=== PATIENT | female | born 1945 | race Caucasian/White ===

== ENCOUNTER → 2019-08-05 | Outpatient (CLI) | payer OTHER ==
--- NOTE | 2019-08-06 08:49 | 2DMMODE ---
[facility] [address] [place] [address] 2 D/M-MODE ECHOCARDIOGRAM Name: CHERISE DIAZ Room #: REG [facility]END[facility]#: [id number] ������������� Admission: 08/05/19 ������������� Attend Phys: Phong Roth, Discharge: ��� ������������� ��� Date of : 47 �������������������� �� Report #: [id number] �������� ��������������������������������������������[id number] THIS REPORT FOR: //name// APPROVED REPORT Study performed: 08/05/2019 13:48:26 EXAM: Comprehensive 2D, Doppler, and color-flow Echocardiogram Patient Location: Out-Patient Room #: Echo lab 2 Status: routine BSA: 1.66 HR: 74 bpm BP: 106/64 mmHg Rhythm: NSR Other Information Study Quality: Good Indications CVA/TIA Echo Enhancing Agent Indication: Rule out Shunt Agent(s) / Amount(s) Used: Agitated Saline 7 cc 2D Dimensions RVDd: 33.33 mm IVSd: 7.76 (7-11mm) LVOT Diam: 19.70 (18-24mm) LVDd: 41.00 mm PWd: 9.05 (7-11mm) Ascending Ao: 30.32 (22-36mm) LVDs: 27.07 (25-40mm) Aortic Root: 33.40 mm IVC: 15.00 mm Volumes Left Atrial Volume (Systole) Single Plane 4CH: 40.88 mL Single Plane 2CH: 39.12 mL LA ESV Index: 25.00 mL/m2 Aortic Valve AoV Peak Michele.: 1.16 m/s AO Peak Gr.: 5.38 mmHg LVOT Max P.32 mmHg LVOT Max V: 1.04 m/s RAZIA Vmax: 2.73 cm2 [facility] [address] [place] [address] 2 D/M-MODE ECHOCARDIOGRAM Name: EMILYCHERISE Room #: [facility]#: [id number] ������������� Admission: 08/05/19 ������������� Attend Phys: Phong Roth, Discharge: ��� ������������� ��� Date of : 47 �������������������� �� Report #: [id number] �������� ��������������������������������������������[id number] Mitral Valve E/A Ratio: 1.0 MV Decel. Time: 237.20 ms MV E Max Michele.: 0.80 m/s MV A Michele.: 0.82 m/s MV PHT: 68.79 ms IVRT: 133.79 ms Pulmonary Valve PV Peak Michele.: 0.85 m/s PV Peak Gr.: 2.91 mmHg Pulmonary Vein P Vein S: 0.64 m/s P Vein A: 0.33 m/s P Vein D: 0.54 m/s P Vein A Dur.: 106.1 msec P Vein S/D Ratio: 1.19 Tricuspid Valve TR Peak Michele.: 2.76 m/s TR Peak Gr.: 30.43 mmHg PA Pressure: 35.00 mmHg Left Ventricle The left ventricle is normal size. There is normal LV segmental wall motion. There is normal left ventricular wall thickness. The left ventricular systolic function is normal. The left ventricular ejection fraction is within the normal range. LVEF is 55-60%. Mild diastolic dysfunction is present (impaired relaxation pattern). Right Ventricle The right ventricle is normal size. The right ventricular systolic function is normal. Atria The left atrium size is normal. Tiny amount of [id number] shunting consistent with patent foramen ovale The right atrium size is normal. Aortic Valve The aortic valve is mildly calcified. Trace aortic regurgitation. There is no aortic valvular stenosis. Mitral Valve The mitral valve is normal in structure. Trace to mild mitral regurgitation. No evidence of mitral valve stenosis. [facility] [address] [place] [address] 2 D/M-MODE ECHOCARDIOGRAM Name: CHERISE DIAZ [id number] ������������� Admission: 08/05/19 ������������� Attend Phys: Phong Roth, Discharge: ��� ������������� ��� Date of : 47 �������������������� �� Report #: [id number] �������� ��������������������������������������������[id number] Tricuspid Valve The tricuspid valve is normal in structure. There is moderate tricuspid regurgitation. Estimated PAP 35 mmHg. There is mild pulmonary hypertension. Pulmonic Valve The pulmonary valve is normal in structure. There is no pulmonic valvular regurgitation. Great Vessels The aortic root is normal in size. IVC is normal in size and collapses >50% with inspiration. Pericardium There is no pericardial effusion. <Conclusion> The left ventricular systolic function is normal. There is normal LV segmental wall motion. LVEF is 55-60%. Mild diastolic dysfunction Tiny amount of [id number]-[id number] shunting consistent with patent foramen ovale The aortic valve is mildly calcified, no stenosis. Trace aortic regurgitation. The mitral valve is normal in structure. Trace to mild mitral regurgitation. There is moderate tricuspid regurgitation. Estimated pulmonary artery pressure of 35 mmHg. There is no pericardial effusion. ��������������������������������������������� <ELECTRONICALLY SIGNED> ���������������������������������������� By: Phong Roth MD, FACC ��������������������������������������������� 08/06/19847 7 7 Phong Roth MD, FACC /INF
== END ==
LOC: ULTRA 13:21
DX: I08.8 Other rheumatic multiple valve diseases (principal); I63.411 Cerebral infarction due to embolism of right middle cerebral artery